=== PATIENT | male | born 1995 | race Two or more races ===

== ENCOUNTER 2023-11-23 14:48 | Emergency (ER) | payer OTHER ==
[~2023-11-23] VITALS: Ht 177.8 cm; Wt 70.0 kg
[2023-11-23 15:03] VITALS: BP 115/67; PULSE 98; RESP 18; TEMP 98.4
[2023-11-23] MEDS: HYDROCODONE/ACETAMINOPHEN 5-325 MG TABLET PO ONE (15:33)
== END 2023-11-23 19:13 ==
LOC: EMS 14:53
DX: S90.32XA Contusion of left foot, initial encounter (principal); W19.XXXA Unspecified fall, initial encounter; Y93.89 Activity, other specified; Y92.89 Other specified places as the place of occurrence of the external cause; Y99.8 Other external cause status
CPT/HCPCS: 99284